=== PATIENT | female | born 1970 | race Caucasian/White ===

== ENCOUNTER 2017-09-03 09:53 | Inpatient (IN) | payer MEDICAID, OTHER ==
[~2017-09-03 09:53] MED LIST: Dexamethasone 4 MG/ML SDV ONE; Glycopyrrolate 0.2 MG/ML 5 ML MDV ONE; Neostigmine Methylsulfate 1 MG/ML 5 ML Syringe ONE; Ondansetron 4 MG/2 ML SDV ONE; Propofol 200 MG/20 ML SDV ONE; Rocuronium 50 MG/5 ML Vial ONE; Succinylcholine 200 MG/10 ML MDV ONE; fentaNYL 250 MCG/5 ML SDV ONE
[2017-09-03] MEDS ORDERED: Lidocaine 2% 100 MG/5 ML Syringe IVPUSH ONE (10:00)
[2017-09-03] MEDS ORDERED: Ropivacaine 32 ML, Dexamethasone 8 MG, EPINEPHrine 0.4 MG, Sodium Chloride 0.9% 45.6 ML NERVRT SCH ×4 (10:00)
[2017-09-03] MEDS ORDERED: Ketamine 500 MG/5 ML MDV IV SCH (10:00)
[2017-09-03] MEDS ORDERED: Acetaminophen 500 MG Tab PO ONE (10:45)
[2017-09-03] MEDS ORDERED: Scopolamine 1.5 MG Transdermal Patch TOP ONE (10:45)
[2017-09-03] MEDS ORDERED: Dextrose 5%-Lactated Ringers 1,000 ML IV SCH ×2 (10:45→15:00)
[2017-09-03] MEDS ORDERED: Celecoxib 200 MG Cap PO ONE (10:45)
[2017-09-03] MEDS ORDERED: Gabapentin 300 MG Cap PO ONE (10:45)
[2017-09-03] MEDS ORDERED: cefOXitin 2 GM in Sodium Chloride 0.9% 50 ML IV ONE (11:00)
[2017-09-03] MEDS ORDERED: cefOXitin 2 GM Vial ONE (12:14)
[2017-09-03] MEDS ORDERED: fentaNYL 250 MCG/5 ML SDV ONE (12:50)
[2017-09-03] MEDS ORDERED: Bupivacaine 0.5%/EPINEPHrine 1:200,000 50 ML MDV ONE (12:51)
[2017-09-03] MEDS ORDERED: hydrOXYzine HCl 100 MG/2 ML SDV IM ONE (13:36)
[2017-09-03] MEDS ORDERED: fentaNYL 100 MCG/2 ML SDV IVPUSH ONE (13:36)
[2017-09-03] MEDS ORDERED: Meperidine PF 25 MG/ML Syringe IV ONE (14:15)
[2017-09-03] MEDS ORDERED: Metoclopramide 10 MG/2 ML SDV IVPUSH PRN (15:00)
[2017-09-03] MEDS ORDERED: Labetalol 20 MG/4 ML Syringe IVPUSH PRN (15:00)
[2017-09-03] MEDS ORDERED: hydrOXYzine HCl 100 MG/2 ML SDV IM PRN (15:00)
[2017-09-03] MEDS ORDERED: diphenhydrAMINE 50 MG/ML SDV IVPUSH PRN (15:00)
[2017-09-03] MEDS ORDERED: Cyclobenzaprine 10 MG Tab PO PRN (15:00)
[2017-09-03] MEDS: Lidocaine 0.4%/D5W 2 GM/500 ML BAG IV SCH (15:20)
[2017-09-03] MEDS: Ondansetron 4 MG/2 ML SDV IVPUSH PRN (15:34)
[2017-09-03] MEDS ORDERED: MVI, Adult with Vitamin K 10 ML, Thiamine 200 MG, Chromium/Copper/Mang/Selen/Zn 1 ML in... IV SCH ×4 (16:00)
[2017-09-03] MEDS: cefOXitin 2 GM in Sodium Chloride 0.9% 50 ML IV SCH (17:38)
[2017-09-03] MEDS: Acetaminophen Soln 650 MG/20.3 ML UD Cup PO SCH (17:39)
[2017-09-03] MEDS: Sodium Ferric Gluconate Cmplex 250 MG in Sodium Chloride 0.9% 100 ML IV SCH (17:39)
[2017-09-03] MEDS: Pantoprazole 40 MG Vial IVPUSH SCH (17:39)
[2017-09-03] MEDS: Gabapentin 250 MG/5 ML Solution ML 470 ML Bottle PO SCH (20:02)
[2017-09-03] MEDS: Heparin Sodium 5,000 Units/ML Vial SUBCUT SCH (20:02)
[2017-09-04] MEDS: cefOXitin 2 GM in Sodium Chloride 0.9% 50 ML IV SCH ×2 (00:27→05:55)
[2017-09-04] MEDS: Acetaminophen Soln 650 MG/20.3 ML UD Cup PO SCH ×4 (00:29→18:45)
[2017-09-04] MEDS ORDERED: Iohexol 647 MG/ML 50 ML SDV PO STA (02:17)
[2017-09-04] MEDS: Ondansetron 4 MG/2 ML SDV IVPUSH PRN (02:59)
[2017-09-04] MEDS ORDERED: HYDROmorphone 1 MG/ML Syringe IVPUSH PRN (03:28)
[2017-09-04] MEDS ORDERED: Levothyroxine 75 MCG Tab PO SCH (07:30)
--- NOTE | 2017-09-04 07:50 | PCM.PN ---
- General Info Date of Service: 09/04/17 Admission Dx/Problem (Free Text): 1. Intusesception at jujunosotmy 2. Post prandial abdominal pain 3. Status post bariatric surgery RNY Subjective Update: Patient is POD #1. Her vitals were stable overnight and there were no acute problems overnight. She is up, ambulating and urinating. She has been passing a lot of gas and will be start on a bowel regimen today to get the bowels started. Her pain is controlled on the current regimen and will switch to oral pain control today. She is tolerating her current diet and we will progressively increase as tolerated. Functional Status: Reports: Pain Controlled, Tolerating Diet, Ambulating, Urinating, Incentive Spirometry - Review of Systems General: Reports: No Symptoms HEENT: Reports: No Symptoms Pulmonary: Reports: No Symptoms Cardiovascular: Reports: No Symptoms Gastrointestinal: Reports: No Symptoms Genitourinary: Reports: No Symptoms Musculoskeletal: Reports: No Symptoms Skin: Reports: No Symptoms Neurological: Reports: No Symptoms Psychiatric: Reports: No Symptoms Systems Review Comment:: Remainder of ROS is negative for any pertinent negatives and positives. - Patient Data Vitals - Most Recent: Last Vital Signs Temp 96.5 F 09/04/17 02:00 Pulse 77 09/04/17 06:00 Resp 14 09/04/17 04:00 BP 107/54 L 09/04/17 06:00 Pulse Ox 98 09/04/17 07:41 Weight - Most Recent: 140 lb I&O - Last 24 Hours: Intake & Output 09/03/17 09/04/17 09/04/17 22:59 06:59 14:59 Intake Total 1528 1870 Output Total 1050 1550 Balance 478 320 Med Orders - Current: Current Medications Acetaminophen (Tylenol) 650 mg PO Q6H [facility] Last Admin: 09/04/17 05:56 Dose: 650 mg Celecoxib (Celebrex) 200 mg PO DAILY@0800 [facility] Cyanocobalamin (Vitamin B12) 1,000 mcg IM ONETIME ONE Stop: 09/05/17 09:01 Cyclobenzaprine HCl (Flexeril) 10 mg PO Q6H PRN PRN Reason: Muscle Spasm Diphenhydramine HCl (Benadryl) 25 - 50 mg IVPUSH Q4H PRN PRN Reason: ITCHING Escitalopram Oxalate (Lexapro) 40 mg PO DAILY [facility] Gabapentin (Neurontin) 300 mg PO TID [facility] Last Admin: 09/03/17 20:02 Dose: 300 mg Heparin Sodium (Porcine) (Heparin Sodium) 5,000 units SUBCUT Q12H [facility] Last Admin: 09/03/17 20:02 Dose: 5,000 units Hydromorphone HCl (Dilaudid) 1 mg IVPUSH Q1H PRN PRN Reason: Pain Last Admin: 09/04/17 03:30 Dose: 1 mg Hydroxyzine HCl (Vistaril) 75 - 100 mg IM Q4H PRN PRN Reason: pain Last Admin: 09/04/17 02:59 Dose: 100 mg Lidocaine HCl/Dextrose (Lidocaine 2 Gm/D5w 500 Ml) 2 gm in 500 mls @ 15 mls/hr IV .Q24H [facility] Stop: 09/04/17 10:00 Last Admin: 09/03/17 15:20 Dose: 1 mg/min, 15 mls/hr Dextrose/Lactated Ringer's (Dextrose 5%-Lactated Ringers) 1,000 mls @ 175.004 mls/hr IV ASDIRECTED [facility] Last Admin: 09/04/17 00:28 Dose: 175.004 mls/hr Multivitamins/Minerals 10 ml/Thiamine HCl 200 mg/ Chromium/Copper/Manganese/ Seleni/Zn 1 ml/ Dextrose/Lactated Ringer's 1,013 mls @ 174.999 mls/hr IV DAILY@ 1600 [facility] Last Admin: 09/03/17 17:39 Dose: 174.999 mls/hr Ferric Sodium Gluconate Complex 250 mg/ Sodium Chloride 120 mls @ 60 mls/hr IV Q24H [facility] Stop: 09/04/17 17:59 Last Admin: 09/03/17 17:39 Dose: 60 mls/hr Labetalol HCl (Normodyne) 5 - 15 mg IVPUSH Q1H PRN PRN Reason: SBP over 160 OR DBP over 95 Levothyroxine Sodium 100 mcg/ (Levothyroxine Sodium 75 mcg) 175 mcg PO DAILY@ 0730 [facility] Metoclopramide HCl (Reglan) 10 mg IVPUSH Q6H PRN PRN Reason: NAUSEA NOT CONTROL BY ZOFRAN Miscellaneous Information (Remove Patch) 1 ea TRDERM ONETIME ONE Stop: 09/05/17 10:01 Scopolamine Patch (Check) 1 each TOP DAILY [facility] Stop: 09/05/17 15:01 Ondansetron HCl (Zofran) 4 mg IVPUSH Q4H PRN PRN Reason: Nausea/Vomiting Last Admin: 09/04/17 02:59 Dose: 4 mg Pantoprazole Sodium (Protonix Iv) 40 mg IVPUSH Q24H [facility] Last Admin: 09/03/17 17:39 Dose: 40 mg Discontinued Medications Acetaminophen (Tylenol Extra Strength) 1,000 mg PO ONETIME ONE Stop: 09/03/17 10:46 Last Admin: 09/03/17 10:12 Dose: 1,000 mg Bupivacaine HCl/Epinephrine Bitart (Marcaine 0.5%/Epinephrine 1:200,000) Confirm Administered Dose 50 ml .ROUTE .STK-MED ONE Stop: 09/03/17 12:52 Last Admin: 09/03/17 14:00 Dose: 30 ml Cefoxitin Sodium (Mefoxin) Confirm Administered Dose 2 gm .ROUTE .STK-MED ONE Stop: 09/03/17 12:15 Last Admin: 09/03/17 14:01 Dose: 2 gm Celecoxib (Celebrex) 200 mg PO ONETIME ONE Stop: 09/03/17 10:46 Last Admin: 09/03/17 10:12 Dose: 200 mg Ropivacaine 32 ml/Dexamethasone 8 mg/Epinephrine HCl 0.4 mg/ Sodium Chloride 45.6 ml 0 ml NERVRT ASDIRECTED [facility] Last Admin: 09/03/17 12:36 Dose: 80 syringe Dexamethasone (Dexamethasone) Confirm Administered Dose 4 mg .ROUTE .STK-MED ONE Stop: 09/03/17 08:31 Fentanyl (Sublimaze) Confirm Administered Dose 250 mcg .ROUTE .STK-MED ONE Stop: 09/03/17 08:31 Fentanyl (Sublimaze) Confirm Administered Dose 250 mcg .ROUTE .STK-MED ONE Stop: 09/03/17 12:51 Fentanyl (Sublimaze) 50 mcg IVPUSH ONETIME ONE Stop: 09/03/17 13:37 Last Admin: 09/03/17 13:41 Dose: 50 mcg Gabapentin (Neurontin) 300 mg PO ONETIME ONE Stop: 09/03/17 10:46 Last Admin: 09/03/17 10:11 Dose: 300 mg Glycopyrrolate (Robinul) Confirm Administered Dose 1 mg .ROUTE .STK-MED ONE Stop: 09/03/17 08:31 Hydroxyzine HCl (Vistaril) 50 mg IM ONETIME ONE Stop: 09/03/17 13:37 Last Admin: 09/03/17 13:42 Dose: 50 mg Cefoxitin Sodium 2 gm/ Sodium (Chloride) 50 mls @ 100 mls/hr IV ONETIME ONE Stop: 09/03/17 11:29 Last Admin: 09/03/17 12:22 Dose: 100 mls/hr Dextrose/Lactated Ringer's (Dextrose 5%-Lactated Ringers) 1,000 mls @ 100 mls/ hr IV ASDIRECTED [facility] Last Admin: 09/03/17 11:04 Dose: 100 mls/hr Ketamine HCl 100 mg/ Sodium (Chloride) 100 mls @ 15.9 mls/hr IV ASDIRECTED [facility] Cefoxitin Sodium 2 gm/ Sodium (Chloride) 50 mls @ 100 mls/hr IV Q6H [facility] Stop: 09/04/17 06:29 Last Admin: 09/04/17 05:55 Dose: 100 mls/hr Iohexol (Omnipaque-300) 50 ml PO .ASDIRECTED STA Stop: 09/04/17 02:18 Last Admin: 09/04/17 02:26 Dose: 50 ml Ketamine HCl (Ketalar) 27 mg IV ASDIRECTED [facility] Lidocaine HCl (Xylocaine 2%) 90 mg IVPUSH ONETIME ONE Stop: 09/03/17 10:01 Last Admin: 09/03/17 14:07 Dose: Not Given Meperidine HCl (Demerol) 25 mg IV ONETIME ONE Stop: 09/03/17 14:16 Last Admin: 09/03/17 14:09 Dose: 25 mg Neostigmine Methylsulfate (Neostigmine) Confirm Administered Dose 5 mg .ROUTE .STK-MED ONE Stop: 09/03/17 08:31 Ondansetron HCl (Zofran) Confirm Administered Dose 4 mg .ROUTE .STK-MED ONE Stop: 09/03/17 08:31 Propofol (Diprivan 20 Ml) Confirm Administered Dose 200 mg .ROUTE .STK-MED ONE Stop: 09/03/17 08:31 Rocuronium [place] (Zemuron) Confirm Administered Dose 50 mg .ROUTE .STK-MED ONE Stop: 09/03/17 08:31 Scopolamine (Transderm-Scop) 1.5 mg TOP ONETIME ONE Stop: 09/03/17 10:46 Last Admin: 09/03/17 10:12 Dose: 1.5 mg Succinylcholine Chloride (Quelicin) Confirm Administered Dose 200 mg .ROUTE .STK -MED ONE Stop: 09/03/17 08:31 - Exam General: Alert, Oriented, Cooperative, No Acute Distress HEENT: Pupils Equal, Mucous Membr. Moist/[place] Neck: Supple Lungs: Clear to Auscultation, Normal Respiratory Effort Cardiovascular: Regular Rate, Regular Rhythm Back Exam: Full Range of Motion Extremities: Normal Range of Motion Skin: Warm, Dry, Intact Wound/Incisions: Healing Well, Dressing Dry and Intact, Drainage (Serosangounous ) Neurological: No New Focal Deficit Psy/Mental Status: Alert, Normal Affect, Normal Mood - Problem List Review Problem List Initiated/Reviewed/Updated: Yes - Assessment Assessment:: Laparotomy of jejunostomy component of the RNY gastric bypass and resection of the billopancreatic limb stump of small bowel and placement of intercede mesh for chronic intucusseption of Jejunostomy - Plan Plan:: 1. Discontinue cardiac monitoring 2. May shower 3. Removal of urinary catheter 4. Bariatric diet 5. Cyanocobalamine VB12 1,000 mcg IM qd 6. Dextrose 5% LR @ 100 MLS/HR IV as directed 7. Ondansetron 4mg po q4g prn for nausea 8. Reevaluate prn on in am
[2017-09-04] MEDS ORDERED: Dextrose 5%-Lactated Ringers 1,000 ML IV SCH (08:00)
[2017-09-04] MEDS: HYDROmorphone 2 MG Tab PO PRN ×3 (08:17→21:00)
[2017-09-04] MEDS: Heparin Sodium 5,000 Units/ML Vial SUBCUT SCH ×2 (08:20→20:51)
[2017-09-04] MEDS: Celecoxib 200 MG Cap PO SCH (08:20)
[2017-09-04] MEDS: Escitalopram 20 MG Tab PO SCH (08:20)
[2017-09-04] MEDS: SCOPOLAMINE PATCH CHECK TOP SCH (08:21)
--- NOTE | 2017-09-04 09:10 | CR ---
UGI wo KUB HISTORY: eval R -Y GBP FINDINGS: After administration of oral contrast, upright views were obtained. Post operative changes gastric bypass. Surgical drains in place. No evidence for leak. There is persistent free air. Contras t passes freely into proximal small bowel loops. IMPRESSION: No evidence for leak or obstruction.
[2017-09-04] MEDS: Gabapentin 250 MG/5 ML Solution ML 470 ML Bottle PO SCH ×3 (10:07→20:51)
[2017-09-04] MEDS: Lidocaine 0.4%/D5W 2 GM/500 ML BAG IV SCH (10:07)
[2017-09-04] MEDS ORDERED: MVI, Adult with Vitamin K 10 ML, Thiamine 200 MG, Chromium/Copper/Mang/Selen/Zn 1 ML in... IV SCH ×4 (16:00)
[2017-09-04] MEDS: Sodium Ferric Gluconate Cmplex 250 MG in Sodium Chloride 0.9% 100 ML IV SCH (16:31)
[2017-09-04] MEDS: Pantoprazole 40 MG Vial IVPUSH SCH (16:36)
[2017-09-04] MEDS ORDERED: Bisacodyl 5 MG Tab PO SCH (21:00)
[2017-09-05] MEDS: Acetaminophen Soln 650 MG/20.3 ML UD Cup PO SCH ×2 (00:08→05:08)
[2017-09-05] MEDS: HYDROmorphone 2 MG Tab PO PRN ×2 (02:38→07:42)
[2017-09-05] MEDS: Celecoxib 200 MG Cap PO SCH (07:43)
[2017-09-05] MEDS: Heparin Sodium 5,000 Units/ML Vial SUBCUT SCH (07:43)
[2017-09-05] MEDS ORDERED: Ondansetron 4 MG Tab.DIS PO PRN (07:57)
[2017-09-05] MEDS: Gabapentin 250 MG/5 ML Solution ML 470 ML Bottle PO SCH (08:49)
[2017-09-05] MEDS: Escitalopram 20 MG Tab PO SCH (08:49)
[2017-09-05] MEDS: SCOPOLAMINE PATCH CHECK TOP SCH (08:50)
[2017-09-05] MEDS ORDERED: Cyanocobalamin (Vitamin B12) 1,000 MCG/ML SDV IM ONE (09:00)
[2017-09-05] MEDS ORDERED: Pantoprazole 40 MG Delayed-Release Granules 1 Packet PO SCH (16:30)
--- NOTE | 2017-09-07 12:34 | DISCH ---
FINAL DIAGNOSES: 1. Chronic intussusception occurring at jejunojejunostomy component of Shahana-en-Y gastric bypass with resolving picture of partial small bowel obstruction. 2. 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 3. Bariatric surgery status. 4. Iron-deficiency status. 5. History of depression. 6. History of opioid agreement. OPERATIVE PROCEDURES: Done on 09/03/2018, exploratory laparotomy with: 1. Revision of jejunojejunostomy component of Shahana-en-Y gastric bypass. 2. Resection of biliopancreatic limb stump of small bowel. 3. Placement of Interceed mesh to limit recurrent adhesion formation between pelvic and abdominal wall and underlying viscera. HOSPITAL COURSE: This is a 47-year-old with several week to months history of postprandial abdominal pain, unable to take anything much more solid than toast without having significant pain. CT scan showed an area of intussusception involving the jejunojejunostomy with quite a bit of dilation of the bowel proximal to that as well. On the day of admission, the patient underwent limited laparotomy with the above-noted procedures with resultant revision of the jejunojejunostomy component of the Shahana-en-Y gastric bypass. The course of the small bowel was also distorted by the retraction of mesentery of the small bowel pancreatic limb stump causing acute angulation of that course, that stump was excised as well to relieve that distortion of the course of the small bowel. Postoperatively, the patient had no major problems. She is presently tolerating oral medications. She will be discharged home with her usual medications plus Tylenol 650 mg p.o. q.i.d. x1 week, then p.r.n., Dilaudid 2 to 4 mg q.4 hours p.r.n. pain, #50. She has a scopolamine patch, which she will be instructed to remove in 24 hours, otherwise will be following up with Marina Bocanegra at [facility] on 09/11/2017. From a work standpoint, the patient will be off this coming week. We will tentatively have the patient going back to work on 09/14/2017 maintaining a light duty status, i.e. no pushing, pulling, or lifting more than around 15 pounds for subsequent 3 weeks, and then on 10/05/2017 tentatively back to limited activity. The extent of the time of limitation of activity will be finalized at the appointment this coming Thursday.
--- NOTE | 2017-09-14 09:59 | OR ---
DATE OF PROCEDURE: 09/03/2017 PREOPERATIVE DIAGNOSIS: Partial small bowel obstruction associated with chronic intussusception at the jejunojejunostomy component of Shahana-en-Y gastric bypass. POSTOPERATIVE DIAGNOSES: 1. Partial small bowel obstruction associated with chronic intussusception at the jejunojejunostomy component of Shahana-en-Y gastric bypass. 2. Mesenteric traction of the pancreatic limb of small bowel causing acute angulation of small bowel course. OPERATIVE PROCEDURE: Exploratory laparotomy with: 1. Revision of jejunojejunostomy with a component of Shahana-en-Y gastric bypass ( 19540). 2. Resection of biliopancreatic limb stump (23246). 3. Placement of Interceed mesh to replace viscera from pelvic and abdominal wall to limit recurrent adhesion formation (97836). ANESTHESIA: General. COMPLIANCE REPRESENTATIVE: 1. Marina Bocanegra PA-C. 2. CORNEL Majano. INDICATIONS FOR PROCEDURE: This is a 47-year-old status post previous Shahana-en- Y gastric bypass, presenting with a picture of chronic partial small bowel obstruction. A recent CT scan showed an ongoing intussusception at the jejunojejunostomy with significant dilation of the bowel proximal to that indicating this is the likely source of the chronic partial obstruction. Plan is to proceed with an open laparotomy and probable revision of the jejunojejunostomy. The potential risks of procedure including bleeding, infection, injury to underlying viscera, leaks from any GI tract closures, as well as possible recurrence of the problem over time, and lastly the possibility of cardiac, pulmonary, septic , or hemorrhagic complications leading to were discussed, and the patient wishes to proceed. DETAILS OF PROCEDURE: The patient was taken to the operating room, placed in a supine position. After general endotracheal anesthesia was induced, the patient had a Gannon catheter inserted and the abdomen was prepped and draped. Using ultrasound guidance, bilateral subcostal transversus abdominis plane blocks were then placed with direct vision of the needle during the injection and standard injectate placed bilaterally. The upper midline incision from the umbilicus to roughly handsbreadth toward the xiphoid was made, carried down through the skin, subcutaneous tissue, and midline fascia. Upon entering the peritoneal cavity, some adhesions were noted between the small bowel, omentum, and the anterior abdominal wall as well as somewhat lower into the pelvis. These were taken down with a combination of blunt and cautery dissection. Once those adhesions were freed up, the area of the small bowel was evaluated. The patient was noted to have a thickened biliopancreatic limb as well as Shahana limb proximal to the jejunojejunostomy consistent with the ongoing episodes of intussusception. At this point, a decision was made to revise the jejunojejunostomy. The Shahana limb was then divided medially, flush with the anastomosis, and this was accomplished with a ELIZABETH richardson load. A small segment of the bowel was then removed as well at the distal end of the Shahana limb that was marginally vascularized at this point with the 2nd firing of the ELIZABETH stapler. The patient at this point has had good weight loss, and given this, no significant revision of the limb lengths was undertaken at this point. The new Shahana-en-Y jejunojejunostomy was then constructed at a point roughly 20 cm distal to the original site. This was a [id number] enteroenterostomy between the end of the Shahana limb and the bowel that had previously been common limb 20 cm distal to the original jejunojejunostomy. This was accomplished with an internal firing of the ELIZABETH 60 mm richardson load, followed by a second 45 mm richardson load internal firing, and then the common opening closed with a purple load. The angles were anastomosed and reinforced with some 3-0 Vicryl stitch. The mesenteric defect was then closed with a running 2-0 silk stitch to provide some permanency to that closure. At this point, the previous jejunojejunostomy which at this point would be a continuation of the biliopancreatic limb from an anatomic standpoint was noted to have at this point still quite a bit of angulation, this related to the traction of the mesentery and the biliopancreatic limb stump. Given this, this was divided flush with that anastomosis as well with a ELIZABETH stapler and the underlying mesentery divided with mesenteric load. This allowed that anastomosis now to assume a nonangulated configuration. A small mesenteric defect underlying this was then also closed with a [id number] stitch of 2- 0 silk stitch. At this point, no further problems were noted. The abdomen was irrigated with antibiotic-containing saline solution to limit recurrent adhesion formation. Interceed mesh was placed from the pelvis, up underneath the abdominal wall including the incision, as a result the omentum was available to protect those areas. The midline fascia was then approximated with a #2 Vicryl stitch. The subcutaneous tissues were closed with 2 layers of 3-0 Vicryl stitch and the skin with julienne. Dressing was applied. The patient was taken to the recovery room in satisfactory condition. Physician real estate administrative assistant, Marina Bocanegra, played an essential role in assisting in this case, helping to position the patient, retract structures as needed as well as suturing and cutting sutures when indicated. Her presence improved patient safety and decreased the operative time. Kwame Trejo MD Job #: [id number]
== END 2017-09-05 10:30 | disposition home or self-care (01) | DRG 345 ==
LOC: JP.SDS 09:53 → JP.SDSSCHI 09:53 → UNDOADMIN 09:53 → EDSTATUS 12:00 → JP.SDSSCHI 14:39 → JP.2SS 14:39
PROVIDERS: ADMIT Surgery; ATTEND Surgery
PROC: 0DBA0ZX Excision of Jejunum, Open Approach, Diagnostic (ICD-10-PCS; principal; 2017-09-03)
PROC: 0DBA0ZX Excision of Jejunum, Open Approach, Diagnostic (ICD-10-PCS; 2017-09-03)
PROC: 3E0M05Z Introduction of Adhesion Barrier into Peritoneal Cavity, Open Approach (ICD-10-PCS; 2017-09-03)
PROC: 3E0T3BZ Introduction of Anesthetic Agent into Peripheral Nerves and Plexi, Percutaneous Approach (ICD-10-PCS; 2017-09-03)
DX: K95.89 Other complications of other bariatric procedure (principal); K56.1 Intussusception; F11.20 Opioid dependence, uncomplicated; K91.2 Postsurgical malabsorption, not elsewhere classified; K56.51 Intestinal adhesions [bands], with partial obstruction; Y83.8 Other surgical procedures as the cause of abnormal reaction of the patient, or of later complication, without mention of misadventure at the time of the procedure; E61.1 Iron deficiency; F32.9 Major depressive disorder, single episode, unspecified; D64.9 Anemia, unspecified; F41.9 Anxiety disorder, unspecified; M17.11 Unilateral primary osteoarthritis, right knee; J45.909 Unspecified asthma, uncomplicated; K21.9 Gastro-esophageal reflux disease without esophagitis; E06.3 Autoimmune thyroiditis; E78.00 Pure hypercholesterolemia, unspecified; R35.1 Nocturia; I73.9 Peripheral vascular disease, unspecified; F17.200 Nicotine dependence, unspecified, uncomplicated; E03.8 Other specified hypothyroidism; E53.8 Deficiency of other specified B group vitamins; E53.9 Vitamin B deficiency, unspecified; Z79.899 Other long term (current) drug therapy; Z98.84 Bariatric surgery status; Z98.0 Intestinal bypass and anastomosis status
CPT/HCPCS: 74240; 74240-26; 88307; 94762; A9270-GY; C9113; J0171; J0330; J0694; J1100; J1170; J1644; J2001; J2175; J2405; J2704; J2710; J2765; J2795; J2916; J3010; J3410; J3411; J3420; J7030; J7042; J7050; Q9967